=== PATIENT | female | born 1960 | race Caucasian/White ===

== ENCOUNTER 2020-05-31 16:30 | Observation (INO) | payer OTHER ==
[2020-05-31] MEDS ORDERED: Ondansetron 4 MG/2 ML SDV IVPUSH ONE (16:39)
[2020-05-31] MEDS ORDERED: Morphine 4 MG/ML VIAL IVPUSH ONE (16:39)
[2020-05-31] MEDS ORDERED: Sodium Chloride 0.9% 1,000 ML IV SCH ×3 (16:45→20:15)
--- NOTE | 2020-05-31 16:48 | EDM.PDOC ---
ED HPI GENERAL MEDICAL PROBLEM - General Chief Complaint: Abdominal Pain Stated Complaint: ABD PAIN Time Seen by Provider: 05/31/20 16:30 Source of Information: Reports: Patient History Limitations: Reports: No Limitations - History of Present Illness INITIAL COMMENTS - FREE TEXT/NARRATIVE: patient presented to the ER WITH a c/o abd pain for 2 days. Progressively getting worse. nausea and emesis x1. Abd distention. h/o multiple abd surgeries in the past and hernia repair with mesh. pain 10 out of 10, spasm like in nature. last regular BM was last night. no h/o SBOs in the past. Onset: Sudden Duration: Day(s): (2) Location: Reports: Abdomen Quality: Reports: Other (spam-like) Improves with: Reports: None Worsens with: Reports: None Associated Symptoms: Reports: Nausea/Vomiting Abdominal Pain Score (Numeric/FACES): 10 - Related Data Allergies Allergy/AdvReac Type Severity Reaction Status Date / Time erythromycin base Allergy Cannot Verified 05/31/20 16:53 Remember fluticasone Allergy Cannot Verified 05/31/20 16:53 [From Advair Diskus] Remember salmeterol Allergy Cannot Verified 05/31/20 16:53 [From Advair Diskus] Remember Home Meds: Home Meds Chlorpheniramine/Pseudoephed [Sudogest Sinus & Allergy] 1 each PO DAILY 05/31/20 [History] Cholecalciferol (Vitamin D3) [Vitamin D3] 1,000 unit PO DAILY 05/31/20 [History] Hydrochlorothiazide/Losartan [Hyzaar 100-12.5 MG] 0.5 tab PO DAILY 05/31/20 [History] Montelukast [Singulair] 10 mg PO DAILY 05/31/20 [History] Ondansetron [Zofran ODT] 4 mg PO Q6H PRN 05/31/20 [History] RX: Aspirin 81 mg PO DAILY 05/31/20 [History] RX: Multivitamin 1 each PO DAILY 05/31/20 [History] RX: Omeprazole 40 mg PO ACBREAKFAST 05/31/20 [History] RX: gemfibroziL [Gemfibrozil] 1 - 2 tab PO DAILY 05/31/20 [History] Simvastatin [Zocor] 10 mg PO BEDTIME 05/31/20 [History] metFORMIN HCl [Metformin HCl ER] 500 mg PO DAILY 05/31/20 [History] Past Medical History Cardiovascular History: Reports: Hypertension Gastrointestinal History: Reports: GERD Endocrine/Metabolic History: Reports: Diabetes, Type II ED ROS GENERAL - Review of Systems Review Of Systems: See Below Constitutional: Reports: No Symptoms HEENT: Reports: No Symptoms Respiratory: Reports: No Symptoms Cardiovascular: Reports: No Symptoms GI/Abdominal: Reports: Abdominal Pain, Nausea : Reports: No Symptoms Musculoskeletal: Reports: No Symptoms Skin: Reports: No Symptoms Neurological: Reports: No Symptoms ED EXAM, GI/ABD - Physical Exam Exam: See Below Exam Limited By: No Limitations General Appearance: Alert, WD/WN, Mild Distress Respiratory/Chest: No Respiratory Distress, Lungs Clear, Normal Breath Sounds Cardiovascular: Regular Rate, Rhythm GI/Abdominal Exam: Distended, Tender ED ABDOMINAL/GI PROCEDURES - Additional/Other Procedure(s) Procedure(s) (Free Text): NGT insertion - connected to LIWS Course - Vital Signs Last Recorded V/S: Last Vital Signs Temp 36.2 C 05/31/20 16:34 Pulse 81 05/31/20 16:45 Resp 28 H 05/31/20 16:45 BP 126/76 05/31/20 16:45 Pulse Ox 100 05/31/20 16:45 - Orders/Labs/Meds Orders: Active Orders 24 hr Category Date Time Status Abdomen Pelvis wo Cont [CT] Stat Exams 05/31/20 16:38 Taken KUB [Abdomen 1V Flat] [CR] Stat Exams 05/31/20 17:56 Ordered UA RFX JAZ AND CULT IF INDIC [URIN] Stat Lab 05/31/20 16:38 Ordered Ciprofloxacin in D5W [Cipro in D5W 400 MG/200 ML] 400 Med 05/31/20 20:00 Ordered mg Premix Bag 1 bag IV Q12HR Sodium Chloride 0.9% [Normal Saline] 1,000 ml Med 05/31/20 16:45 Active IV ASDIRECTED Sodium Chloride 0.9% [Normal Saline] 1,000 ml Med 05/31/20 18:45 Ordered IV ASDIRECTED metroNIDAZOLE/Normal Saline [Flagyl in NS 500 MG/100 ML Med 05/31/20 19:15 Ordered ] 500 mg Premix Bag 1 bag IV Q8H Medication Orders Sodium Chloride (Normal Saline) 1,000 mls @ 150 mls/hr IV ASDIRECTED TEJAS Last Admin: 05/31/20 17:15 Dose: 150 mls/hr Documented by: LUAN Sodium Chloride (Normal Saline) 1,000 mls @ 999 mls/hr IV ASDIRECTED TEJAS Labs: Laboratory Tests 05/31/20 05/31/20 05/31/20 Range/Units 16:40 16:40 16:40 WBC 16.6 H (4.0-11.0) K/uL RBC 4.51 (3.80-5.80) M/uL Hgb 13.7 (11.5-16.5) g/dL Hct 39.9 (37.0-47.0) % MCV 89 (76-96) fL MCH 30.4 (27.0-32.0) pg MCHC 34.3 (31.0-35.0) g/dL RDW 13.4 (11.0-16.0) % Plt Count 182 (150-500) K/uL MPV 10.4 H (6.0-10.0) fL Neut % (Auto) 81.9 H (45.0-70.0) % Lymph % (Auto) 12.8 L (20.0-40.0) % [place] % (Auto) 4.7 (3.0-10.0) % Eos % (Auto) 0.4 L (1.0-5.0) % Baso % (Auto) 0.2 (0.0-0.5) % Neut # (Auto) 13.62 H (2.00-7.50) K/uL Lymph # (Auto) 2.13 (1.50-4.00) K/uL [place] # (Auto) 0.78 (0.20-0.80) K/uL Eos # (Auto) 0.06 (0.04-0.40) K/uL Baso # (Auto) 0.04 (0.02-0.10) K/uL Sodium 143 (136-145) mmol/L Potassium 3.5 (3.5-5.1) mmol/L Chloride 104 (98-107) mmol/L Carbon Dioxide 26.2 (21.0-32.0) mmol/L Anion Gap 16.3 H (5.0-15.0) mmol/L BUN 30 H (8-26) mg/dL Creatinine 0.93 (0.55-1.02) mg/dL Est Cr Clr Drug Dosing TNP Estimated GFR (MDRD) > 60 (>60) MLS/MIN BUN/Creatinine Ratio 32.3 H (6-25) Glucose 292 H (74-100) mg/dL Lactic Acid (0.4-2.0) mmol/L Calcium 9.1 (8.5-10.1) mg/dL Total Bilirubin 0.4 (0.0-1.0) mg/dL AST 14 L (15-37) U/L ALT 29 (12-78) U/L Alkaline Phosphatase 43 L (46-116) U/L Lactate Dehydrogenase 176 (81-234) U/L Total Protein 7.6 (6.4-8.2) g/dL Albumin 4.1 (3.4-5.0) g/dL Globulin 3.5 (2.2-4.2) g/dL Albumin/Globulin Ratio 1.2 (0.8-2.0) Amylase (25-115) U/L Lipase 4566 H* (73-393) U/L 05/31/20 05/31/20 Range/Units 16:40 17:30 WBC (4.0-11.0) K/uL RBC (3.80-5.80) M/uL Hgb (11.5-16.5) g/dL Hct (37.0-47.0) % MCV (76-96) fL MCH (27.0-32.0) pg MCHC (31.0-35.0) g/dL RDW (11.0-16.0) % Plt Count (150-500) K/uL MPV (6.0-10.0) fL Neut % (Auto) (45.0-70.0) % Lymph % (Auto) (20.0-40.0) % [place] % (Auto) (3.0-10.0) % Eos % (Auto) (1.0-5.0) % Baso % (Auto) (0.0-0.5) % Neut # (Auto) (2.00-7.50) K/uL Lymph # (Auto) (1.50-4.00) K/uL [place] # (Auto) (0.20-0.80) K/uL Eos # (Auto) (0.04-0.40) K/uL Baso # (Auto) (0.02-0.10) K/uL Sodium (136-145) mmol/L Potassium (3.5-5.1) mmol/L Chloride (98-107) mmol/L Carbon Dioxide (21.0-32.0) mmol/L Anion Gap (5.0-15.0) mmol/L BUN (8-26) mg/dL Creatinine (0.55-1.02) mg/dL Est Cr Clr Drug Dosing Estimated GFR (MDRD) (>60) MLS/MIN BUN/Creatinine Ratio (6-25) Glucose (74-100) mg/dL Lactic Acid 3.0 H (0.4-2.0) mmol/L Calcium (8.5-10.1) mg/dL Total Bilirubin (0.0-1.0) mg/dL AST (15-37) U/L ALT (12-78) U/L Alkaline Phosphatase (46-116) U/L Lactate Dehydrogenase (81-234) U/L Total Protein (6.4-8.2) g/dL Albumin (3.4-5.0) g/dL Globulin (2.2-4.2) g/dL Albumin/Globulin Ratio (0.8-2.0) Amylase 193 H (25-115) U/L Lipase (73-393) U/L Meds: Medications Generic Name Dose Route Start Last Admin Trade Name Freq PRN Reason Stop Dose Admin Sodium Chloride 1,000 mls @ 150 mls/hr 05/31/20 16:45 05/31/20 17:15 Normal Saline IV 150 mls/hr ASDIRECTED TEJAS Administration Sodium Chloride 1,000 mls @ 999 mls/hr 05/31/20 18:45 Normal Saline IV ASDIRECTED TEJAS Discontinued Medications Generic Name Dose Route Start Last Admin Trade Name Freq PRN Reason Stop Dose Admin Hydromorphone HCl Confirm 05/31/20 17:16 05/31/20 17:13 Dilaudid Administered 05/31/20 17:17 Not Given Dose 2 mg .ROUTE .STK-MED ONE Hydromorphone HCl 1 mg 05/31/20 17:08 05/31/20 17:08 Dilaudid IVPUSH 05/31/20 17:09 1 mg ONETIME ONE Administration Prochlorperazine Edisylate 5 51 mls @ 150 mls/hr 05/31/20 17:40 05/31/20 17:37 mg/ Sodium Chloride IV 05/31/20 18:00 150 mls/hr ONETIME ONE Administration Morphine Sulfate 4 mg 05/31/20 16:39 05/31/20 16:46 Morphine IVPUSH 05/31/20 16:40 4 mg ONETIME ONE Administration Morphine Sulfate Confirm 05/31/20 16:53 05/31/20 17:13 Morphine Administered 05/31/20 16:54 Not Given Dose 4 mg .ROUTE .STK-MED ONE Ondansetron HCl 4 mg 05/31/20 16:39 05/31/20 16:44 Zofran IVPUSH 05/31/20 16:40 4 mg ONETIME ONE Administration Ondansetron HCl Confirm 05/31/20 16:53 05/31/20 17:13 Zofran Administered 05/31/20 16:54 Not Given Dose 4 mg .ROUTE .STK-MED ONE Prochlorperazine Edisylate Confirm 05/31/20 17:45 05/31/20 18:09 Compazine Administered 05/31/20 17:46 Not Given Dose 10 mg .ROUTE .STK-MED ONE - Re-Assessments/Exams Free Text/Narrative Re-Assessment/Exam: vitals WNL IV line pain control with morphine IV Zofran for nausea labs and CT abd/pelv 05/31/20 18:09 labs significant for leukocytosis and elevation in lipase CT abd/pelv showed e/o SBO. no hernia or free air. no e/o pancreatitis or diverticulitis. Multiple attempts to control the pain with morphine and Dilaudid, but pain significantly improved after NGT insertion. 05/31/20 19:09 NGT placement was confirmed with xrays discussed with the patients other treatment options, including transfer to a higher level of care with availability of surgery due to lack of this service here. Also discussed with the patient that she will require conservative therapy including NPO, IVF and NGT. In case any deterioration, worsening abd pain, or deterioration in clinical status - then patient will need to be transferred to the nearest facility with surgery availability - 2 hrs to [facility]. patient and understood the cons and pros and decided to spend the night locally to try the NGT and will re assess in the morning. Departure - Departure Time of Disposition: 19:14 Disposition: Admitted As Inpatient 66 Condition: Good Clinical Impression: Small bowel obstruction, Enteritis - Discharge Information *PRESCRIPTION DRUG MONITORING PROGRAM REVIEWED*: Not Applicable *COPY OF PRESCRIPTION DRUG MONITORING REPORT IN PATIENT CARLITOS: Not Applicable Referrals: PCP,None [Primary Care Provider] - Forms: ED Department Discharge, ED Return to Work/School Form Sepsis Event Note (ED) - Focused Exam Vital Signs: Vital Signs Temp Pulse Resp BP Pulse Ox 05/31/20 16:45 81 28 H 126/76 100 05/31/20 16:34 36.2 C 91 24 H 126/83 100 - Problem List & Annotations (1) Abdominal pain SNOMED Code(s): 56110951 Code(s): R10.9 - UNSPECIFIED ABDOMINAL PAIN Status: Acute Priority: Medium Current Visit: Yes Qualifiers: Abdominal location: epigastric Qualified Code(s): R10.13 - Epigastric pain (2) Serum lipase elevation SNOMED Code(s): 850552804 Code(s): R74.8 - ABNORMAL LEVELS OF OTHER SERUM ENZYMES Status: Acute Priority: Low Current Visit: Yes (3) Leukocytosis SNOMED Code(s): 283914178, 001295273 Code(s): D72.829 - ELEVATED WHITE BLOOD CELL COUNT, UNSPECIFIED Status: Acute Priority: Low Current Visit: Yes Qualifiers: Leukocytosis type: unspecified Qualified Code(s): D72.829 - Elevated white blood cell count, unspecified (4) Nausea & vomiting SNOMED Code(s): 54277634 Code(s): R11.2 - NAUSEA WITH VOMITING, UNSPECIFIED Status: Acute Priority: Medium Current Visit: Yes Qualifiers: Vomiting type: unspecified Vomiting Intractability: unspecified Qualified Code(s): R11.2 - Nausea with vomiting, unspecified (5) Small bowel obstruction SNOMED Code(s): 545203775 Code(s): K56.609 - UNSP INTESTNL OBST, UNSP TO PARTIAL VERSUS COMPLETE OBST Status: Acute Priority: High Current Visit: Yes - Problem List Review Problem List Initiated/Reviewed/Updated: Yes - My Orders Last 24 Hours: My Active Orders 05/31/20 16:38 Abdomen Pelvis wo Cont [CT] Stat UA RFX JAZ AND CULT IF INDIC [URIN] Stat 05/31/20 16:45 Sodium Chloride 0.9% [Normal Saline] 1,000 ml IV ASDIRECTED 05/31/20 17:56 KUB [Abdomen 1V Flat] [CR] Stat 05/31/20 18:45 Sodium Chloride 0.9% [Normal Saline] 1,000 ml IV ASDIRECTED 05/31/20 19:15 metroNIDAZOLE/Normal Saline [Flagyl in NS 500 MG/100 ML] 500 mg Premix Bag 1 bag IV Q8H 05/31/20 20:00 Ciprofloxacin in D5W [Cipro in D5W 400 MG/200 ML] 400 mg Premix Bag 1 bag IV Q12HR - Assessment/Plan Last 24 Hours: My Active Orders 05/31/20 16:38 Abdomen Pelvis wo Cont [CT] Stat UA RFX JAZ AND CULT IF INDIC [URIN] Stat 05/31/20 16:45 Sodium Chloride 0.9% [Normal Saline] 1,000 ml IV ASDIRECTED 05/31/20 17:56 KUB [Abdomen 1V Flat] [CR] Stat 05/31/20 18:45 Sodium Chloride 0.9% [Normal Saline] 1,000 ml IV ASDIRECTED 05/31/20 19:15 metroNIDAZOLE/Normal Saline [Flagyl in NS 500 MG/100 ML] 500 mg Premix Bag 1 bag IV Q8H 05/31/20 20:00 Ciprofloxacin in D5W [Cipro in D5W 400 MG/200 ML] 400 mg Premix Bag 1 bag IV Q12HR Plan: - SBO: most likely 2/[address] scan no signs of hernia. NGT was placed with some relief of symptoms. - enteritis: starting cipro/flagyl. h/o diarrhea prior to this incidence. r/u c.diff. - lipase elevation: no e/o pancreatitis. probably 2/2 SBO - pain control with IV Dilaudid. - nausea: IV Compazine - frequent abdominal exam - repeat labs tomorrow morning
[2020-05-31] MEDS ORDERED: Morphine 4 MG/ML VIAL ONE (16:53)
[2020-05-31] MEDS ORDERED: Ondansetron 4 MG/2 ML SDV ONE (16:53)
[2020-05-31] MEDS ORDERED: HYDROmorphone 2 MG/ML SDV IVPUSH ONE (17:08)
[2020-05-31] MEDS ORDERED: HYDROmorphone 2 MG/ML SDV ONE (17:16)
[2020-05-31] MEDS ORDERED: Prochlorperazine 5 MG in Sodium Chloride 0.9% 50 ML IV ONE (17:40)
[2020-05-31] MEDS ORDERED: Prochlorperazine 10 MG/2 ML SDV ONE (17:45)
[2020-05-31] MEDS ORDERED: Ciprofloxacin in D5W 200 ML ONE (20:02)
[2020-05-31] MEDS ORDERED: metroNIDAZOLE/Normal Saline 100 ML ONE (20:02)
[2020-05-31] MEDS ORDERED: HYDROmorphone 4 MG/ML Syringe IVPUSH PRN (20:10)
[2020-05-31] MEDS ORDERED: Prochlorperazine 10 MG/2 ML SDV IVPUSH PRN (20:10)
[2020-05-31] MEDS: metroNIDAZOLE/Normal Saline 500 MG in Premix Bag 1 BAG IV SCH (21:22)
[2020-05-31] MEDS: Ciprofloxacin in D5W 400 MG in Premix Bag 1 BAG IV SCH ×2 (21:23)
[2020-06-01] MEDS ORDERED: metroNIDAZOLE/Normal Saline 100 ML ONE (04:00)
[2020-06-01] MEDS: metroNIDAZOLE/Normal Saline 500 MG in Premix Bag 1 BAG IV SCH (04:27)
[2020-06-01] MEDS ORDERED: Ciprofloxacin in D5W 200 ML ONE (07:32)
[2020-06-01] MEDS: Ciprofloxacin in D5W 400 MG in Premix Bag 1 BAG IV SCH ×2 (07:34)
--- NOTE | 2020-06-01 09:37 | CR ---
Date of Service: 05/2520 Clinical Data: Post-NG Insertion SUPINE ABDOMEN: No priors. There is an NG tube in place with its distal tip in the stomach. Stomach and gas and debris filled and moderately distended. There is gas throughout the colon. There are multiple gas filled loops of small bowel throughout the mid and lower abdomen and pelvis. [id number] [facility]
--- NOTE | 2020-06-01 09:50 | CT ---
Date of Service: 05/31/20 Clinical Data: abd pain ? SBO UNENHANCED ABDOMEN AND PELVIC CT: Multislice acquisition through the abdomen and pelvis without IV or oral contrast was performed. No priors. There are minimal atelectatic changes in both lung bases. The lung bases otherwise clear. The heart size is normal. The unenhanced liver appears normal. No focal hepatic lesions. The patient is status post cholecystectomy. The spleen appears normal. The pancreas appears normal. The right and left adrenals appear normal. The right and left kidneys appear normal. No nephrocalcinosis or nephrolithiasis. No hydronephrosis or hydroureter. Bladder is partially fluid filled. It appears normal. The appendix is not dilated. No evidence of appendicitis. The stomach is gas and debris filled and moderately distended. There are gas and fluid filled loops of small bowel throughout the abdomen and pelvis. They are dilated. They contain air-fluid levels. Findings are consistent with a small bowel obstruction. There is diverticulosis of the descending and sigmoid colon. No evidence of diverticulitis. The patient is status post hysterectomy. No free air. No free fluid. No adenopathy. No aortic aneurysm. No other significant findings. IMPRESSION: Findings consistent with small bowel obstruction. Multiple other findings as discussed above. [id number] [facility]
[2020-06-01] MEDS ORDERED: Potassium Chloride Riders 10 MEQ in Premix Bag 1 BAG IV ONE (10:29)
--- NOTE | 2020-06-01 10:36 | PCM.HP.2 ---
H&P History of Present Illness - General Date of Service: 06/01/20 Admit Problem/Dx: Admission Diagnosis/Problem Admission Diagnosis/Problem Small bowel obstruction Source of Information: Patient History Limitations: Reports: No Limitations Abdominal Pain Score (Numeric/FACES): 2 - Related Data Allergies/Adverse Reactions: Allergies Allergy/AdvReac Type Severity Reaction Status Date / Time erythromycin base Allergy Cannot Verified 05/31/20 16:53 Remember fluticasone Allergy Cannot Verified 05/31/20 16:53 [From Advair Diskus] Remember salmeterol Allergy Cannot Verified 05/31/20 16:53 [From Advair Diskus] Remember Home Medications: Home Meds Aspirin 81 mg PO DAILY 05/31/20 [History] Chlorpheniramine/Pseudoephed [Sudogest Sinus & Allergy] 1 each PO DAILY 05/31/20 [History] Cholecalciferol (Vitamin D3) [Vitamin D3] 1,000 unit PO DAILY 05/31/20 [History] Hydrochlorothiazide/Losartan [Hyzaar 100-12.5 MG] 0.5 tab PO DAILY 05/31/20 [History] Montelukast [Singulair] 10 mg PO DAILY 05/31/20 [History] Multivitamin 1 each PO DAILY 05/31/20 [History] Omeprazole 40 mg PO ACBREAKFAST 05/31/20 [History] Ondansetron [Zofran ODT] 4 mg PO Q6H PRN 05/31/20 [History] Simvastatin [Zocor] 10 mg PO BEDTIME 05/31/20 [History] gemfibroziL [Gemfibrozil] 1 - 2 tab PO DAILY 05/31/20 [History] metFORMIN HCl [Metformin HCl ER] 500 mg PO DAILY 05/31/20 [History] Past Medical History HEENT History: Reports: Impaired Vision Cardiovascular History: Reports: Hypertension Gastrointestinal History: Reports: GERD 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: Endocrine/Metabolic History: Reports: Diabetes, Type II - Infectious Disease History Infectious Disease History: Reports: Chicken Pox - Past Surgical History GI Surgical History: Reports: Appendectomy, Bariatric Procedure, Hernia Re pair/Other Female Surgical History: Reports: Hysterectomy Social & Family History - Tobacco Use Tobacco Use Status *Q: Never Tobacco User - Caffeine Use Caffeine Use: Reports: Tea - Recreational Drug Use Recreational Drug Use: No Exam - Vital Signs Vital Signs: Last Vital Signs Temp 36.8 C 06/01/20 07:55 Pulse 84 06/01/20 07:55 Resp 18 06/01/20 07:55 BP 122/67 06/01/20 07:55 Pulse Ox 97 06/01/20 07:55 Weight: 70.477 kg - Patient Data Lab Results Last 24 hrs: Laboratory Results - last 24 hr 05/31/20 05/31/20 05/31/20 Range/Units 16:38 16:40 16:40 WBC 16.6 H (4.0-11.0) K/uL RBC 4.51 (3.80-5.80) M/uL Hgb 13.7 (11.5-16.5) g/dL Hct 39.9 (37.0-47.0) % MCV 89 (76-96) fL MCH 30.4 (27.0-32.0) pg MCHC 34.3 (31.0-35.0) g/dL RDW 13.4 (11.0-16.0) % Plt Count 182 (150-500) K/uL MPV 10.4 H (6.0-10.0) fL Neut % (Auto) 81.9 H (45.0-70.0) % Lymph % (Auto) 12.8 L (20.0-40.0) % [place] % (Auto) 4.7 (3.0-10.0) % Eos % (Auto) 0.4 L (1.0-5.0) % Baso % (Auto) 0.2 (0.0-0.5) % Neut # (Auto) 13.62 H (2.00-7.50) K/uL Lymph # (Auto) 2.13 (1.50-4.00) K/uL [place] # (Auto) 0.78 (0.20-0.80) K/uL Eos # (Auto) 0.06 (0.04-0.40) K/uL Baso # (Auto) 0.04 (0.02-0.10) K/uL Sodium 143 (136-145) mmol/L Potassium 3.5 (3.5-5.1) mmol/L Chloride 104 (98-107) mmol/L Carbon Dioxide 26.2 (21.0-32.0) mmol/L Anion Gap 16.3 H (5.0-15.0) mmol/L BUN 30 H (8-26) mg/dL Creatinine 0.93 (0.55-1.02) mg/dL Est Cr Clr Drug Dosing TNP Estimated GFR (MDRD) > 60 (>60) MLS/MIN BUN/Creatinine Ratio 32.3 H (6-25) Glucose 292 H (74-100) mg/dL Lactic Acid (0.4-2.0) mmol/L Calcium 9.1 (8.5-10.1) mg/dL Total Bilirubin 0.4 (0.0-1.0) mg/dL AST 14 L (15-37) U/L ALT 29 (12-78) U/L Alkaline Phosphatase 43 L (46-116) U/L Lactate Dehydrogenase (81-234) U/L Total Protein 7.6 (6.4-8.2) g/dL Albumin 4.1 (3.4-5.0) g/dL Globulin 3.5 (2.2-4.2) g/dL Albumin/Globulin Ratio 1.2 (0.8-2.0) Amylase (25-115) U/L Lipase 4566 H* (73-393) U/L Urine Color Yellow Urine Appearance Clear (CLEAR) Urine pH 5.5 (5.0-8.0) Ur Specific [place] >= 1.030 (1.003-1.030) Urine Protein Negative (NEGATIVE) mg/dL Urine Glucose (UA) 100 H (NEGATIVE) mg/dL Urine Ketones Trace H (NEGATIVE) mg/dL Urine Occult Blood Negative (NEGATIVE) Urine Nitrite Negative (NEGATIVE) Urine Bilirubin Negative (NEGATIVE) Urine Urobilinogen 0.2 (0.2-1.0) E.U./dL Ur Leukocyte Esterase Negative (NEGATIVE) 05/31/20 05/31/20 05/31/20 Range/Units 16:40 16:40 17:30 WBC (4.0-11.0) K/uL RBC (3.80-5.80) M/uL Hgb (11.5-16.5) g/dL Hct (37.0-47.0) % MCV (76-96) fL MCH (27.0-32.0) pg MCHC (31.0-35.0) g/dL RDW (11.0-16.0) % Plt Count (150-500) K/uL MPV (6.0-10.0) fL Neut % (Auto) (45.0-70.0) % Lymph % (Auto) (20.0-40.0) % [place] % (Auto) (3.0-10.0) % Eos % (Auto) (1.0-5.0) % Baso % (Auto) (0.0-0.5) % Neut # (Auto) (2.00-7.50) K/uL Lymph # (Auto) (1.50-4.00) K/uL [place] # (Auto) (0.20-0.80) K/uL Eos # (Auto) (0.04-0.40) K/uL Baso # (Auto) (0.02-0.10) K/uL Sodium (136-145) mmol/L Potassium (3.5-5.1) mmol/L Chloride (98-107) mmol/L Carbon Dioxide (21.0-32.0) mmol/L Anion Gap (5.0-15.0) mmol/L BUN (8-26) mg/dL Creatinine (0.55-1.02) mg/dL Est Cr Clr Drug Dosing Estimated GFR (MDRD) (>60) MLS/MIN BUN/Creatinine Ratio (6-25) Glucose (74-100) mg/dL Lactic Acid 3.0 H (0.4-2.0) mmol/L Calcium (8.5-10.1) mg/dL Total Bilirubin (0.0-1.0) mg/dL AST (15-37) U/L ALT (12-78) U/L Alkaline Phosphatase (46-116) U/L Lactate Dehydrogenase 176 (81-234) U/L Total Protein (6.4-8.2) g/dL Albumin (3.4-5.0) g/dL Globulin (2.2-4.2) g/dL Albumin/Globulin Ratio (0.8-2.0) Amylase 193 H (25-115) U/L Lipase (73-393) U/L Urine Color Urine Appearance (CLEAR) Urine pH (5.0-8.0) Ur Specific [place] (1.003-1.030) Urine Protein (NEGATIVE) mg/dL Urine Glucose (UA) (NEGATIVE) mg/dL Urine Ketones (NEGATIVE) mg/dL Urine Occult Blood (NEGATIVE) Urine Nitrite (NEGATIVE) Urine Bilirubin (NEGATIVE) Urine Urobilinogen (0.2-1.0) E.U./dL Ur Leukocyte Esterase (NEGATIVE) 06/01/20 06/01/20 06/01/20 Range/Units 09:27 09:27 09:28 WBC 8.6 D (4.0-11.0) K/uL RBC 3.79 L (3.80-5.80) M/uL Hgb 11.6 (11.5-16.5) g/dL Hct 34.2 L (37.0-47.0) % MCV 90 (76-96) fL MCH 30.6 (27.0-32.0) pg MCHC 33.9 (31.0-35.0) g/dL RDW 13.7 (11.0-16.0) % Plt Count 192 (150-500) K/uL MPV 10.2 H (6.0-10.0) fL Neut % (Auto) 59.4 (45.0-70.0) % Lymph % (Auto) 29.4 (20.0-40.0) % [place] % (Auto) 8.8 (3.0-10.0) % Eos % (Auto) 2.1 (1.0-5.0) % Baso % (Auto) 0.3 (0.0-0.5) % Neut # (Auto) 5.12 (2.00-7.50) K/uL Lymph # (Auto) 2.53 (1.50-4.00) K/uL [place] # (Auto) 0.76 (0.20-0.80) K/uL Eos # (Auto) 0.18 (0.04-0.40) K/uL Baso # (Auto) 0.03 (0.02-0.10) K/uL Sodium 145 (136-145) mmol/L Potassium 3.4 L (3.5-5.1) mmol/L Chloride 110 H (98-107) mmol/L Carbon Dioxide 25.6 (21.0-32.0) mmol/L Anion Gap 12.8 (5.0-15.0) mmol/L BUN 19 D (8-26) mg/dL Creatinine 0.79 (0.55-1.02) mg/dL Est Cr Clr Drug Dosing 68.99 Estimated GFR (MDRD) > 60 (>60) MLS/MIN BUN/Creatinine Ratio 24.1 (6-25) Glucose 117 H D (74-100) mg/dL Lactic Acid 1.6 (0.4-2.0) mmol/L Calcium 8.2 L (8.5-10.1) mg/dL Total Bilirubin (0.0-1.0) mg/dL AST (15-37) U/L ALT (12-78) U/L Alkaline Phosphatase (46-116) U/L Lactate Dehydrogenase (81-234) U/L Total Protein (6.4-8.2) g/dL Albumin (3.4-5.0) g/dL Globulin (2.2-4.2) g/dL Albumin/Globulin Ratio (0.8-2.0) Amylase (25-115) U/L Lipase 403 H D (73-393) U/L Urine Color Urine Appearance (CLEAR) Urine pH (5.0-8.0) Ur Specific [place] (1.003-1.030) Urine Protein (NEGATIVE) mg/dL Urine Glucose (UA) (NEGATIVE) mg/dL Urine Ketones (NEGATIVE) mg/dL Urine Occult Blood (NEGATIVE) Urine Nitrite (NEGATIVE) Urine Bilirubin (NEGATIVE) Urine Urobilinogen (0.2-1.0) E.U./dL Ur Leukocyte Esterase (NEGATIVE) Result Diagrams: 06/01/20 09:27 06/01/20 09:27 Kailash Results Last 24 hrs: Microbiology 05/31/20 22:49 Clostridioides difficile (PCR) - Final Stool / Feces Sepsis Event Note - Evaluation Sepsis Screening Result: No Definite Risk - Focused Exam Vital Signs: Vital Signs Temp Temp Pulse Resp BP Pulse Ox 06/01/20 07:55 36.8 C 84 18 122/67 97 06/01/20 04:00 90 16 111/67 96 06/01/20 00:00 36.8 C 80 16 112/66 97 - Problem List (1) Abdominal pain SNOMED Code(s): 79334110 ICD Code: R10.9 - UNSPECIFIED ABDOMINAL PAIN Status: Acute Priority: Medium Current Visit: Yes Qualifiers: Abdominal location: epigastric Qualified Code(s): R10.13 - Epigastric pain (2) Serum lipase elevation SNOMED Code(s): 335314770 ICD Code: R74.8 - ABNORMAL LEVELS OF OTHER SERUM ENZYMES Status: Acute Priority: Low Current Visit: Yes (3) Leukocytosis SNOMED Code(s): 784367412, 411443529 ICD Code: D72.829 - ELEVATED WHITE BLOOD CELL COUNT, UNSPECIFIED Status: Acute Priority: Low Current Visit: Yes Qualifiers: Leukocytosis type: unspecified Qualified Code(s): D72.829 - Elevated white blood cell count, unspecified (4) Nausea & vomiting SNOMED Code(s): 82290280 ICD Code: R11.2 - NAUSEA WITH VOMITING, UNSPECIFIED Status: Acute Priority: Medium Current Visit: Yes Qualifiers: Vomiting type: unspecified Vomiting Intractability: unspecified Qualified Code(s): R11.2 - Nausea with vomiting, unspecified (5) Small bowel obstruction SNOMED Code(s): 866167398 ICD Code: K56.609 - UNSP INTESTNL OBST, UNSP TO PARTIAL VERSUS COMPLETE OBST Status: Acute Priority: High Current Visit: Yes Orders Last 24hrs: Active Orders 24 hr Category Date Time Status Patient Status [ADT] Routine ADT 05/31/20 20:06 Active Oxygen Therapy [RC] PRN Care 05/31/20 20:09 Active VTE/DVT Education [RC] Per Unit Routine Care 05/31/20 20:09 Active Vital Signs [RC] 00,04,08,12,16,20 Care 05/31/20 20:06 Active CULTURE MRSA SURVEY [RM] Routine Lab 06/01/20 00:35 Received Ciprofloxacin in D5W [Cipro in D5W 400 MG/200 ML] 400 Med 05/31/20 20:00 Active mg Premix Bag 1 bag IV Q12HR HYDROmorphone [Dilaudid] Med 05/31/20 20:10 Active 0.5 mg IVPUSH Q6H PRN Potassium Chloride Riders [KCl in Water 10 MEQ/50 ML] Med 06/01/20 10:29 Active 10 meq Premix Bag 1 bag IV ONETIME Prochlorperazine [Compazine] Med 05/31/20 20:10 Active 5 mg IVPUSH Q6H PRN Sodium Chloride 0.9% [Normal Saline] 1,000 ml Med 05/31/20 16:45 Active IV ASDIRECTED Sodium Chloride 0.9% [Normal Saline] 1,000 ml Med 05/31/20 18:45 Active IV ASDIRECTED Sodium Chloride 0.9% [Normal Saline] 1,000 ml Med 05/31/20 20:15 Active IV ASDIRECTED metroNIDAZOLE/Normal Saline [Flagyl in NS 500 MG/100 ML Med 05/31/20 19:15 Active ] 500 mg Premix Bag 1 bag IV Q8H Isolation [COMM] Routine Oth 05/31/20 19:45 Active Isolation [COMM] Stat Ot 05/31/20 22:50 Active Resuscitation Status Routine Resus Stat 05/31/20 20:09 Ordered Medication Orders Hydromorphone HCl (Dilaudid) 0.5 mg IVPUSH Q6H PRN PRN Reason: Pain (moderate 4-6) Sodium Chloride (Normal Saline) 1,000 mls @ 150 mls/hr IV ASDIRECTED [facility] Last Admin: 05/31/20 17:15 Dose: 150 mls/hr Documented by: LUAN Sodium Chloride (Normal Saline) 1,000 mls @ 999 mls/hr IV ASDIRECTED [facility] Last Admin: 05/31/20 19:15 Dose: 999 mls/hr Documented by: MARIA ELENA Metronidazole 500 mg/ Premix 100 mls @ 100 mls/hr IV Q8H [facility] Last Admin: 06/01/20 04:27 Dose: 100 mls/hr Documented by: MARIA ELENA Infusion: 05/31/20 22:22 Dose: 100 mls/hr Documented by: MARIA ELENA Admin: 05/31/20 21:22 Dose: 100 mls/hr Documented by: MARIA ELENA Ciprofloxacin/Dextrose 400 mg/ (Premix) 200 mls @ 200 mls/hr IV Q12HR [facility] Last Admin: 06/01/20 07:34 Dose: 200 mls/hr Documented by: Infusion: 05/31/20 22:23 Dose: 200 mls/hr Documented by: Admin: 05/31/20 21:23 Dose: 200 mls/hr Documented by: WALKREN Sodium Chloride (Normal Saline) 1,000 mls @ 150 mls/hr IV ASDIRECTED [facility] Last Admin: 05/31/20 22:27 Dose: 150 mls/hr Documented by: MARIA ELENA Potassium Chloride 10 meq/ (Premix) 50 mls @ 50 mls/hr IV ONETIME ONE Stop: 06/01/20 11:28 Prochlorperazine Edisylate (Compazine) 5 mg IVPUSH Q6H PRN PRN Reason: Nausea/Vomiting
--- NOTE | 2020-06-01 10:57 | PCM.DCSUM1 ---
Discharge Summary - Hospital Course Brief History: patient was admitted last night due to abdominal pain. CT scan showed e/o SBO. NGT and IVF were started. Patient had a good responce to treatment. Overnight, she had 2 small BMs, didn't require anything for pain. Nausea resolved. Had around 600ml in canister. The following morning, patient reported that she would like to leave so she can start driving with her back to home in [place]. They are here just visiting for fishing this weekend. She was made aware that it is a little early to remove the NGT. and still need to asses her ability to maintain any PO intake. She reported that she will follow up with her PCP when she arrives or visit the ER if her condition got worse. Patient will be d/cd as AMA. No pain meds to be prescribed, but cipro/flagyl. for enteritis. Diagnosis: Stroke: No - Discharge Data Discharge Date: 06/01/20 Discharge Disposition: Against Medical Advice 07 Condition: Good - Referral to Home Health Primary Care Physician: PCP None - Discharge Diagnosis/Problem(s) (1) Abdominal pain SNOMED Code(s): 83620638 ICD Code: R10.9 - UNSPECIFIED ABDOMINAL PAIN Status: Acute Priority: Medium Current Visit: Yes Qualifiers: Abdominal location: epigastric Qualified Code(s): R10.13 - Epigastric pain (2) Serum lipase elevation SNOMED Code(s): 152119772 ICD Code: R74.8 - ABNORMAL LEVELS OF OTHER SERUM ENZYMES Status: Acute Priority: Low Current Visit: Yes (3) Leukocytosis SNOMED Code(s): 523895723, 633744517 ICD Code: D72.829 - ELEVATED WHITE BLOOD CELL COUNT, UNSPECIFIED Status: Acute Priority: Low Current Visit: Yes Qualifiers: Leukocytosis type: unspecified Qualified Code(s): D72.829 - Elevated white blood cell count, unspecified (4) Nausea & vomiting SNOMED Code(s): 22564893 ICD Code: R11.2 - NAUSEA WITH VOMITING, UNSPECIFIED Status: Acute Priority: Medium Current Visit: Yes Qualifiers: Vomiting type: unspecified Vomiting Intractability: unspecified Qualified Code(s): R11.2 - Nausea with vomiting, unspecified (5) Small bowel obstruction SNOMED Code(s): 815871364 ICD Code: K56.609 - UNSP INTESTNL OBST, UNSP TO PARTIAL VERSUS COMPLETE OBST Status: Acute Priority: High Current Visit: Yes - Patient Instructions Diet: Clear Liquid Diet Diet, Other: NPO Showering/Bathing: May Shower - Discharge Plan *PRESCRIPTION DRUG MONITORING PROGRAM REVIEWED*: Not Applicable *COPY OF PRESCRIPTION DRUG MONITORING REPORT IN PATIENT CARLITOS: Not Applicable Prescriptions/Med Rec: Ciprofloxacin HCl [Cipro] 500 mg PO BID #6 tablet metroNIDAZOLE [Flagyl] 500 mg PO Q8H #9 tab Home Medications: Home Meds Aspirin 81 mg PO DAILY 05/31/20 [History] Chlorpheniramine/Pseudoephed [Sudogest Sinus & Allergy] 1 each PO DAILY 05/31/20 [History] Cholecalciferol (Vitamin D3) [Vitamin D3] 1,000 unit PO DAILY 05/31/20 [History] Hydrochlorothiazide/Losartan [Hyzaar 100-12.5 MG] 0.5 tab PO DAILY 05/31/20 [History] Montelukast [Singulair] 10 mg PO DAILY 05/31/20 [History] Multivitamin 1 each PO DAILY 05/31/20 [History] Omeprazole 40 mg PO ACBREAKFAST 05/31/20 [History] Ondansetron [Zofran ODT] 4 mg PO Q6H PRN 05/31/20 [History] Simvastatin [Zocor] 10 mg PO BEDTIME 05/31/20 [History] gemfibroziL [Gemfibrozil] 1 - 2 tab PO DAILY 05/31/20 [History] metFORMIN HCl [Metformin HCl ER] 500 mg PO DAILY 05/31/20 [History] Ciprofloxacin HCl [Cipro] 500 mg PO BID #6 tablet 06/01/20 [Rx] metroNIDAZOLE [Flagyl] 500 mg PO Q8H #9 tab 06/01/20 [Rx] Patient Handouts: Bowel Obstruction, [id number] Forms: ED Department Discharge, ED Return to Work/School Form Referrals: PCP,None [Primary Care Provider] - - Discharge Summary/Plan Comment DC Time >30 min.: Yes - General Info Date of Service: 06/01/20 Admission Dx/Problem (Free Text: Admission Diagnosis/Problem Admission Diagnosis/Problem Small bowel obstruction Functional Status: Reports: Pain Controlled, Ambulating, Urinating - Review of Systems General: Reports: No Symptoms HEENT: Reports: No Symptoms Pulmonary: Reports: No Symptoms Cardiovascular: Reports: No Symptoms Gastrointestinal: Denies: Abdominal Pain, Nausea Genitourinary: Reports: No Symptoms Musculoskeletal: Reports: No Symptoms Neurological: Reports: No Symptoms Psychiatric: Reports: No Symptoms - Patient Data Vitals - Most Recent: Last Vital Signs Temp 36.8 C 06/01/20 07:55 Pulse 84 06/01/20 07:55 Resp 18 06/01/20 07:55 BP 122/67 06/01/20 07:55 Pulse Ox 97 06/01/20 07:55 Weight - Most Recent: 70.477 kg I&O - Last 24 hours: Intake & Output 05/31/20 06/01/20 06/01/20 22:59 06:59 14:59 Intake Total 1900 Output Total 700 Balance 1200 Lab Results - Last 24 hrs: Laboratory Results - last 24 hr 05/31/20 05/31/20 05/31/20 Range/Units 16:38 16:40 16:40 WBC 16.6 H (4.0-11.0) K/uL RBC 4.51 (3.80-5.80) M/uL Hgb 13.7 (11.5-16.5) g/dL Hct 39.9 (37.0-47.0) % MCV 89 (76-96) fL MCH 30.4 (27.0-32.0) pg MCHC 34.3 (31.0-35.0) g/dL RDW 13.4 (11.0-16.0) % Plt Count 182 (150-500) K/uL MPV 10.4 H (6.0-10.0) fL Neut % (Auto) 81.9 H (45.0-70.0) % Lymph % (Auto) 12.8 L (20.0-40.0) % Ritchie % (Auto) 4.7 (3.0-10.0) % Eos % (Auto) 0.4 L (1.0-5.0) % Baso % (Auto) 0.2 (0.0-0.5) % Neut # (Auto) 13.62 H (2.00-7.50) K/uL Lymph # (Auto) 2.13 (1.50-4.00) K/uL Ritchie # (Auto) 0.78 (0.20-0.80) K/uL Eos # (Auto) 0.06 (0.04-0.40) K/uL Baso # (Auto) 0.04 (0.02-0.10) K/uL Sodium 143 (136-145) mmol/L Potassium 3.5 (3.5-5.1) mmol/L Chloride 104 (98-107) mmol/L Carbon Dioxide 26.2 (21.0-32.0) mmol/L Anion Gap 16.3 H (5.0-15.0) mmol/L BUN 30 H (8-26) mg/dL Creatinine 0.93 (0.55-1.02) mg/dL Est Cr Clr Drug Dosing TNP Estimated GFR (MDRD) > 60 (>60) MLS/MIN BUN/Creatinine Ratio 32.3 H (6-25) Glucose 292 H (74-100) mg/dL Lactic Acid (0.4-2.0) mmol/L Calcium 9.1 (8.5-10.1) mg/dL Total Bilirubin 0.4 (0.0-1.0) mg/dL AST 14 L (15-37) U/L ALT 29 (12-78) U/L Alkaline Phosphatase 43 L (46-116) U/L Lactate Dehydrogenase (81-234) U/L Total Protein 7.6 (6.4-8.2) g/dL Albumin 4.1 (3.4-5.0) g/dL Globulin 3.5 (2.2-4.2) g/dL Albumin/Globulin Ratio 1.2 (0.8-2.0) Amylase (25-115) U/L Lipase 4566 H* (73-393) U/L Urine Color Yellow Urine Appearance Clear (CLEAR) Urine pH 5.5 (5.0-8.0) Ur Specific [place] >= 1.030 (1.003-1.030) Urine Protein Negative (NEGATIVE) mg/dL Urine Glucose (UA) 100 H (NEGATIVE) mg/dL Urine Ketones Trace H (NEGATIVE) mg/dL Urine Occult Blood Negative (NEGATIVE) Urine Nitrite Negative (NEGATIVE) Urine Bilirubin Negative (NEGATIVE) Urine Urobilinogen 0.2 (0.2-1.0) E.U./dL Ur Leukocyte Esterase Negative (NEGATIVE) 05/31/20 05/31/20 05/31/20 Range/Units 16:40 16:40 17:30 WBC (4.0-11.0) K/uL RBC (3.80-5.80) M/uL Hgb (11.5-16.5) g/dL Hct (37.0-47.0) % MCV (76-96) fL MCH (27.0-32.0) pg MCHC (31.0-35.0) g/dL RDW (11.0-16.0) % Plt Count (150-500) K/uL MPV (6.0-10.0) fL Neut % (Auto) (45.0-70.0) % Lymph % (Auto) (20.0-40.0) % Ritchie % (Auto) (3.0-10.0) % Eos % (Auto) (1.0-5.0) % Baso % (Auto) (0.0-0.5) % Neut # (Auto) (2.00-7.50) K/uL Lymph # (Auto) (1.50-4.00) K/uL Ritchie # (Auto) (0.20-0.80) K/uL Eos # (Auto) (0.04-0.40) K/uL Baso # (Auto) (0.02-0.10) K/uL Sodium (136-145) mmol/L Potassium (3.5-5.1) mmol/L Chloride (98-107) mmol/L Carbon Dioxide (21.0-32.0) mmol/L Anion Gap (5.0-15.0) mmol/L BUN (8-26) mg/dL Creatinine (0.55-1.02) mg/dL Est Cr Clr Drug Dosing Estimated GFR (MDRD) (>60) MLS/MIN BUN/Creatinine Ratio (6-25) Glucose (74-100) mg/dL Lactic Acid 3.0 H (0.4-2.0) mmol/L Calcium (8.5-10.1) mg/dL Total Bilirubin (0.0-1.0) mg/dL AST (15-37) U/L ALT (12-78) U/L Alkaline Phosphatase (46-116) U/L Lactate Dehydrogenase 176 (81-234) U/L Total Protein (6.4-8.2) g/dL Albumin (3.4-5.0) g/dL Globulin (2.2-4.2) g/dL Albumin/Globulin Ratio (0.8-2.0) Amylase 193 H (25-115) U/L Lipase (73-393) U/L Urine Color Urine Appearance (CLEAR) Urine pH (5.0-8.0) Ur Specific [place] (1.003-1.030) Urine Protein (NEGATIVE) mg/dL Urine Glucose (UA) (NEGATIVE) mg/dL Urine Ketones (NEGATIVE) mg/dL Urine Occult Blood (NEGATIVE) Urine Nitrite (NEGATIVE) Urine Bilirubin (NEGATIVE) Urine Urobilinogen (0.2-1.0) E.U./dL Ur Leukocyte Esterase (NEGATIVE) 06/01/20 06/01/20 06/01/20 Range/Units 09:27 09:27 09:28 WBC 8.6 D (4.0-11.0) K/uL RBC 3.79 L (3.80-5.80) M/uL Hgb 11.6 (11.5-16.5) g/dL Hct 34.2 L (37.0-47.0) % MCV 90 (76-96) fL MCH 30.6 (27.0-32.0) pg MCHC 33.9 (31.0-35.0) g/dL RDW 13.7 (11.0-16.0) % Plt Count 192 (150-500) K/uL MPV 10.2 H (6.0-10.0) fL Neut % (Auto) 59.4 (45.0-70.0) % Lymph % (Auto) 29.4 (20.0-40.0) % Ritchie % (Auto) 8.8 (3.0-10.0) % Eos % (Auto) 2.1 (1.0-5.0) % Baso % (Auto) 0.3 (0.0-0.5) % Neut # (Auto) 5.12 (2.00-7.50) K/uL Lymph # (Auto) 2.53 (1.50-4.00) K/uL Ritchie # (Auto) 0.76 (0.20-0.80) K/uL Eos # (Auto) 0.18 (0.04-0.40) K/uL Baso # (Auto) 0.03 (0.02-0.10) K/uL Sodium 145 (136-145) mmol/L Potassium 3.4 L (3.5-5.1) mmol/L Chloride 110 H (98-107) mmol/L Carbon Dioxide 25.6 (21.0-32.0) mmol/L Anion Gap 12.8 (5.0-15.0) mmol/L BUN 19 D (8-26) mg/dL Creatinine 0.79 (0.55-1.02) mg/dL Est Cr Clr Drug Dosing 68.99 Estimated GFR (MDRD) > 60 (>60) MLS/MIN BUN/Creatinine Ratio 24.1 (6-25) Glucose 117 H D (74-100) mg/dL Lactic Acid 1.6 (0.4-2.0) mmol/L Calcium 8.2 L (8.5-10.1) mg/dL Total Bilirubin (0.0-1.0) mg/dL AST (15-37) U/L ALT (12-78) U/L Alkaline Phosphatase (46-116) U/L Lactate Dehydrogenase (81-234) U/L Total Protein (6.4-8.2) g/dL Albumin (3.4-5.0) g/dL Globulin (2.2-4.2) g/dL Albumin/Globulin Ratio (0.8-2.0) Amylase (25-115) U/L Lipase 403 H D (73-393) U/L Urine Color Urine Appearance (CLEAR) Urine pH (5.0-8.0) Ur Specific [place] (1.003-1.030) Urine Protein (NEGATIVE) mg/dL Urine Glucose (UA) (NEGATIVE) mg/dL Urine Ketones (NEGATIVE) mg/dL Urine Occult Blood (NEGATIVE) Urine Nitrite (NEGATIVE) Urine Bilirubin (NEGATIVE) Urine Urobilinogen (0.2-1.0) E.U./dL Ur Leukocyte Esterase (NEGATIVE) JAZ Results - Last 24 hrs: Microbiology 05/31/20 22:49 Clostridioides difficile (PCR) - Final Stool / Feces Med Orders - Current: Current Medications Hydromorphone HCl (Dilaudid) 0.5 mg IVPUSH Q6H PRN PRN Reason: Pain (moderate 4-6) Sodium Chloride (Normal Saline) 1,000 mls @ 150 mls/hr IV ASDIRECTED [facility] Last Admin: 05/31/20 17:15 Dose: 150 mls/hr Documented by: Sodium Chloride (Normal Saline) 1,000 mls @ 999 mls/hr IV ASDIRECTED [facility] Last Admin: 05/31/20 19:15 Dose: 999 mls/hr Documented by: Metronidazole 500 mg/ Premix 100 mls @ 100 mls/hr IV Q8H [facility] Last Admin: 06/01/20 04:27 Dose: 100 mls/hr Documented by: Ciprofloxacin/Dextrose 400 mg/ (Premix) 200 mls @ 200 mls/hr IV Q12HR [facility] Last Admin: 06/01/20 07:34 Dose: 200 mls/hr Documented by: Sodium Chloride (Normal Saline) 1,000 mls @ 150 mls/hr IV ASDIRECTED [facility] Last Admin: 05/31/20 22:27 Dose: 150 mls/hr Documented by: Potassium Chloride 10 meq/ (Premix) 50 mls @ 50 mls/hr IV ONETIME ONE Stop: 06/01/20 11:28 Prochlorperazine Edisylate (Compazine) 5 mg IVPUSH Q6H PRN PRN Reason: Nausea/Vomiting Discontinued Medications Hydromorphone HCl (Dilaudid) Confirm Administered Dose 2 mg .ROUTE .STK-MED ONE Stop: 05/31/20 17:17 Last Admin: 05/31/20 17:13 Dose: Not Given Documented by: Hydromorphone HCl (Dilaudid) 1 mg IVPUSH ONETIME ONE Stop: 05/31/20 17:09 Last Admin: 05/31/20 17:08 Dose: 1 mg Documented by: Prochlorperazine Edisylate 5 (mg/ Sodium Chloride) 51 mls @ 150 mls/hr IV ONETIME ONE Stop: 05/31/20 18:00 Last Admin: 05/31/20 17:37 Dose: 150 mls/hr Documented by: Metronidazole (Flagyl In Ns 500 Mg/100 Ml) Confirm Administered Dose 100 mls @ as directed .ROUTE .STK-MED ONE Stop: 05/31/20 20:03 Last Admin: 05/31/20 22:40 Dose: Not Given Documented by: Ciprofloxacin/Dextrose (Cipro In D5w 400 Mg/200 Ml) Confirm Administered Dose 200 mls @ as directed .ROUTE .STK-MED ONE Stop: 05/31/20 20:03 Last Admin: 05/31/20 22:40 Dose: Not Given Documented by: Metronidazole (Flagyl In Ns 500 Mg/100 Ml) Confirm Administered Dose 100 mls @ as directed .ROUTE .STK-MED ONE Stop: 06/01/20 04:01 Last Admin: 06/01/20 05:33 Dose: Not Given Documented by: Ciprofloxacin/Dextrose (Cipro In D5w 400 Mg/200 Ml) Confirm Administered Dose 200 mls @ as directed .ROUTE .STK-MED ONE Stop: 06/01/20 07:33 Last Admin: 06/01/20 07:35 Dose: Not Given Documented by: Morphine Sulfate (Morphine) 4 mg IVPUSH ONETIME ONE Stop: 05/31/20 16:40 Last Admin: 05/31/20 16:46 Dose: 4 mg Documented by: Morphine Sulfate (Morphine) Confirm Administered Dose 4 mg .ROUTE .ST-MED ONE Stop: 05/31/20 16:54 Last Admin: 05/31/20 17:13 Dose: Not Given Documented by: Ondansetron HCl (Zofran) 4 mg IVPUSH ONETIME ONE Stop: 05/31/20 16:40 Last Admin: 05/31/20 16:44 Dose: 4 mg Documented by: Ondansetron HCl (Zofran) Confirm Administered Dose 4 mg .ROUTE .ST-MED ONE Stop: 05/31/20 16:54 Last Admin: 05/31/20 17:13 Dose: Not Given Documented by: Prochlorperazine Edisylate (Compazine) Confirm Administered Dose 10 mg .ROUTE .ST-MED ONE Stop: 05/31/20 17:46 Last Admin: 05/31/20 18:09 Dose: Not Given Documented by: - Exam General: Reports: Alert, Oriented HEENT: Reports: Pupils Equal Lungs: Reports: Clear to Auscultation Cardiovascular: Reports: Regular Rate GI/Abdominal Exam: Normal Bowel Sounds, Soft, Non-Tender, No Distention. No: Rebound, Tender Extremities: Normal Inspection Psy/Mental Status: Reports: Alert, Normal Affect
== END 2020-06-01 11:45 | disposition left against medical advice (07) ==
LOC: LB.ED 16:30 → LB.MS 19:40 → UNDOADMOB 19:40 → LB.MS 20:06
PROVIDERS: ADMIT Surgery; ATTEND Surgery
DX: K56.609 Unspecified intestinal obstruction, unspecified as to partial versus complete obstruction (principal); K52.9 Noninfective gastroenteritis and colitis, unspecified; I10 Essential (primary) hypertension; E11.9 Type 2 diabetes mellitus without complications; K21.9 Gastro-esophageal reflux disease without esophagitis; R74.8 Abnormal levels of other serum enzymes; D72.829 Elevated white blood cell count, unspecified; Z88.8 Allergy status to other drugs, medicaments and biological substances; Z79.84 Long term (current) use of oral hypoglycemic drugs; Z79.82 Long term (current) use of aspirin; Z79.899 Other long term (current) drug therapy
CPT/HCPCS: 36415; 74018; 74176; 80048; 80053; 81003; 82150; 83605; 83615; 83690; 85025; 87493; 96365; 96367; 96375; 96376; 99217; 99219; 99285-25; A0425; A0429; G0378; J0744; J0780; J1170; J2270; J2405; J3490; J7030